=== PATIENT | male | born 1930 | race Caucasian/White ===

== ENCOUNTER 2019-04-21 12:45 | Emergency (ER) | payer MEDICARE, OTHER ==
[~2019-04-21] VITALS: Ht 172.7 cm; Wt 78.0 kg
[2019-04-21] MEDS ORDERED: LIDOCAINE 2% JEL UROJET 10 ML MM ONE ×2 (13:00→13:03)
--- NOTE | 2019-04-21 13:05 | NUR ---
MARLENE ZAMORA 41 [facility] "feels like he has to pee x2H but can't". Patient a/ox4, breathing even and unlabored, french speaking. c/o lower abdominal pain.
[2019-04-21 13:45] LABS: APPEARANCE,URINE CLEAR (CLEAR); BILIRUBIN,URINE NEGATIVE (NEGATIVE); BLOOD, URINE NEGATIVE Ery/uL (NEGATIVE); COLOR,URINE YELLOW (YELLOW); KETONES,URINE NEGATIVE (NEGATIVE); LEUKOCYTE ESTERASE ,URINE NEGATIVE (NEGATIVE); NITRITE, URINE NEGATIVE (NEGATIVE); PROTEIN,URINE NEGATIVE (NEGATIVE); UGLUCOSE NEGATIVE (NEGATIVE); UROBILINOGEN,URINE 0.2 EU/dL (0.2)
--- NOTE | 2019-04-21 13:50 | NUR ---
Piña catheter inserted via sterile technique, with output of 1000ml of clear yellow urine. Brooks Palm made aware patient is cleared for discharge and will be sent home with piña catheter.
--- NOTE | 2019-04-21 15:00 | NUR ---
Patient had a total output of 1700ML from piña bag.
--- NOTE | 2019-04-21 16:14 | NUR ---
ZARAGOZA CATHETER IN PLACED, CHANGED TO LEG BAG. Emptied out prior to discharge, additional 400ml. Patient discharged to home in stable condition. Written and verbal after care instructions given to son and patient, both verbalizes understanding of instruction.
[2019-04-21 16:15] VITALS: BP 122/60
== END 2019-04-21 16:16 | disposition home or self-care (01) ==
LOC: ER 12:48
DX: R33.9 Retention of urine, unspecified (principal)
CPT/HCPCS: 51702; 81001; 99284; J3490; 81000-TC